=== PATIENT | male | born 1985 | race Two or more races ===

== ENCOUNTER 2022-05-02 19:24 | Emergency (ER) | payer BC ==
[~2022-05-02] VITALS: Ht 170.2 cm; Wt 67.1 kg
== END 2022-05-02 22:04 | disposition home or self-care (01) ==
LOC: ER 19:24
DX: J10.1 Influenza due to other identified influenza virus with other respiratory manifestations (principal); Z91.048 Other nonmedicinal substance allergy status; Z20.822 Contact with and (suspected) exposure to COVID-19